=== PATIENT | male | born 1985 | race Two or more races ===

== ENCOUNTER 2019-08-04 06:07 | Emergency (ER) | payer MEDICAID, OTHER ==
[~2019-08-04] VITALS: Ht 172.7 cm; Wt 56.7 kg
[2019-08-04] MEDS ORDERED: ceFAZolin 1000mg inj IV ONE (06:40)
[2019-08-04] MEDS ORDERED: TETanus/Pertussis (Acell)/Diphther VAC/PF (Tdap-Adult) 0.5ml syringe IM ONE (06:40)
[2019-08-04] MEDS ORDERED: gentamicin in saline, iso-osm 80 MG/50 ML premix IV ONE (06:40)
[2019-08-04] MEDS ORDERED: cefazolin/dext.iso 2gm/50ml 50 ML IV ONE (06:45)
[2019-08-04] MEDS ORDERED: gentamicin inj 80 MG in normal saline 100ml IV soln 100 ML IV ONE (06:45)
[2019-08-04] MEDS ORDERED: normal saline 1000ML IV soln IVB ONE (06:45)
[2019-08-04] MEDS ORDERED: morphine 4 MG/ML inj SYRINge IV ONE (06:45)
[2019-08-04] MEDS ORDERED: iohexol 300mg/ml 100ml inj. ONE (06:45)
[2019-08-04] MEDS ORDERED: ondansetron/PF 4mg/2ml inj IV ONE (06:45)
--- NOTE | 2019-08-04 06:57 | NUR ---
PT IN CT AT THIS TIME
--- NOTE | 2019-08-04 07:05 | NUR ---
PT RETURNS FROM CT
[2019-08-04 07:23] LABS: BASOPHILS # (AUTO) 0.1 X10'3 (0-0.2); BASOPHILS % (AUTO) 0.6 % (0-1); EOSINOPHILS # (AUTO) 0.1 X10'3 (0-0.9); EOSINOPHILS % (AUTO) 1.2 % (0-6); HEMATOCRIT 38.2 % (42.0-52.0); HEMOGLOBIN 12.9 g/dl (14.0-17.9); LYMPHOCYTES # (AUTO) 1.9 X10'3 (1.1-4.8); LYMPHOCYTES % (AUTO) 17.1 % (21-51); MEAN CORPUSCULAR HGB CONC 33.8 g/dL (33.0-36.5); MEAN CORPUSCULAR VOLUME 88.6 FL (78-98); MEAN PLATELET VOLUME 8.6 FL (7.4-10.4); MONOCYTES # (AUTO) 1.2 X10'3 (0-0.9); MONOCYTES % (AUTO) 11.1 % (2-12); NEUTROPHILS # (AUTO) 7.6 X10'3 (1.8-7.7); PLATELET COUNT 254 X10'3 (140-440); RED BLOOD COUNT 4.31 X10'6 (4.70-6.10); RED CELL DISTRIBUTION WIDTH 13.4 % (11.5-14.5); WHITE BLOOD COUNT 10.8 X10'3 (4.5-11.0)
[2019-08-04 07:34] LABS: PARTIAL THROMBOPLASTIN TIME 25 SECONDS (22-32)
[2019-08-04 07:44] LABS: CKMB RELATIVE INDEX 0.5 RATIO (0-2.5); CREATINE KINASE 331 U/L (39-308); ETHANOL < 0.010 GM/DL (0.0-0.010)
[2019-08-04 07:48] LABS: CLARITY,URINE CLEAR (Clear); COLOR,URINE YELLOW (Yellow); GLUCOSE, URINE NEGATIVE (Neg); KETONES,URINE NEGATIVE (Neg); LEUKOCYTE ESTERASE ,URINE NEGATIVE (Neg); NITRITES, URINE NEGATIVE (Neg); OCCULT BLOOD,URINE TRACE-INTACT (Neg); PH,URINE 7.5 (4.8-8.0); PROTEIN,URINE TRACE mg/dl (Neg); UROBILINOGEN,URINE 0.2 E.U/dL (0.2-1.0)
[2019-08-04 07:53] LABS: URINE AMPHETAMINE SCREEN POSITIVE (Neg); URINE BARBITUATE SCREEN NEGATIVE (Neg); URINE BENZODIAZEPINES SCREEN NEGATIVE (Neg); URINE CANNABINOID SCREEN POSITIVE (Neg); URINE COCAINE SCREEN NEGATIVE (Neg); URINE METHADONE SCREEN NEGATIVE (Neg); URINE OPIATE SCREEN POSITIVE (Neg); URINE PHENCYCLIDINE SCREEN NEGATIVE (Neg)
[2019-08-04 07:57] LABS: UA COLLECTION TYPE URINAL
[2019-08-04 07:59] LABS: BACTERIA,URINE NONE SEEN /HPF (Neg); MUCUS STRANDS NONE SEEN /LPF (Neg); SQUAMOUS EPITHELIAL CELL,UR FEW /LPF (FEW)
[2019-08-04 08:00] LABS: SPERM FEW /HPF (NEGATIVE)
[2019-08-04] MEDS ORDERED: ONDA4TAB6 PO (08:45)
[2019-08-04] MEDS ORDERED: HYDR-4353 PO (08:45)
[2019-08-04] MEDS ORDERED: CEPH-572 PO (08:45)
[2019-08-04] MEDS ORDERED: CLIN150C2 PO (08:45)
[2019-08-04 09:24] VITALS: BP 127/78
== END 2019-08-04 09:26 | disposition home or self-care (01) ==
LOC: ER 06:09
DX: S71.131A Puncture wound without foreign body, right thigh, initial encounter (principal); S70.11XA Contusion of right thigh, initial encounter; W34.00XA Accidental discharge from unspecified firearms or gun, initial encounter; Y93.89 Activity, other specified; Y92.89 Other specified places as the place of occurrence of the external cause; Y99.9 Unspecified external cause status
CPT/HCPCS: 73701; 80305; 80320; 81001; 82550; 82553; 85025; 85610; 85730; 86885; 86900; 86901; 87088; 96365; 96366; 96367; 96375; 99284; J1580; J2270; J2405; J7030; Q9967; J0690